=== PATIENT | male | born 1980 | race African-American/Black ===

== ENCOUNTER 2020-07-20 08:43 | Emergency (ER) | payer OTHER ==
[2020-07-20 09:05] VITALS: TEMP 98
[2020-07-20] MEDS ORDERED: DIPH,PERTUS(ACELL)TETVAC-LF 0.5 ML VIAL IM ONE (09:12)
[2020-07-20] MEDS ORDERED: HYDROcodone/APAP 5-325MG 1 EACH TAB PO STA (09:13)
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
[2020-07-20] MEDS ORDERED: cefTRIAXone 1,000 MG VIAL (IM USE) IM STA (10:18)
[2020-07-20 11:07] VITALS: RESP 18
[2020-07-20 11:08] VITALS: BP 150/82; PULSE 82
== END 2020-07-20 11:08 | disposition home or self-care (01) ==
LOC: EC 08:43
DX: S61.431A Puncture wound without foreign body of right hand, initial encounter (principal); S11.91XA Laceration without foreign body of unspecified part of neck, initial encounter; S01.01XA Laceration without foreign body of scalp, initial encounter; S60.458A Superficial foreign body of other finger, initial encounter; F17.200 Nicotine dependence, unspecified, uncomplicated; Z23 Encounter for immunization; X99.8XXA Assault by other sharp object, initial encounter; Y93.84 Activity, sleeping; Y92.009 Unspecified place in unspecified non-institutional (private) residence as the place of occurrence of the external cause
CPT/HCPCS: 73130; 90715; 99283; 96372; 90471; J0696